=== PATIENT | female | born 1995 | race Caucasian/White ===

== ENCOUNTER 2021-02-20 17:09 | Emergency (ER) | payer OTHER ==
[2021-02-20 17:15] VITALS: BP 108/63
[2021-02-20] MEDS ORDERED: TETANUS/DIPHTHERIA/PERTUSSIS 0.5 ML SYRINGE IM ONE (17:23)
[2021-02-20] MEDS ORDERED: BACITRACIN ZINC OINT 1 PACKET TOP STA (17:23)
--- NOTE | 2021-02-20 17:25 | ED Physician Documentation ---
History of Present Illness - Stated complaint Stated Complaint: LEFT LEG INJURY - Chief complaint Chief Complaint: Ext Problem - Additonal information Additional information: 25-year-old female presents with emergency department for evaluation of superficial scratches on the right lower leg sustained this afternoon when she was helping a friend clean up her backyard. She is unsure of her last tetanus which is the predominant reason for visiting the ER.No pertinent past medical problems or history Review of Systems Constitutional: denies: Fever, Chills Eyes: reports: Reviewed and negative Nose: reports: Reviewed and negative Throat: reports: Reviewed and negative Cardiac: reports: Reviewed and negative Respiratory: reports: Reviewed and negative GI: reports: Reviewed and negative Skin: reports: Abrasion (s) PD PAST MEDICAL HISTORY - Allergies Allergies/Adverse Reactions: Allergies Allergy/AdvReac Type Severity Reaction Status Date / Time No Known Drug Allergies Allergy Verified 02/20/21 17:12 PD ED PE EXPANDED - Extremities Extremities: Right leg (2 superficial scratches on the right lower anterior leg each measuring approximately 6 cm.) Results - Vitals Vitals: Vital Signs - 24 hr 02/20/21 17:12 Temperature 36.5 C Heart Rate 62 Respiratory 16 Rate Blood Pressure 108/63 O2 Saturation 99 Oxygen O2 Source Room air PD MEDICAL DECISION MAKING - ED course Complexity details: considered differential, d/w patient ED course: 25-year-old female presents emergency department with 2 superficial scratches to her right lower anterior leg sustained when cutting them on a jose miguel nail while working in the backyard. Unknown last tetanus. Tetanus updated today. These are superficial in nature and likely to heal by primary intention. Wounds were thoroughly cleansed with chlorhexidine and Betadine. Bacitracin applied routine wound care otherwise discussed. Departure - Departure Disposition: 01 Home, Self Care Clinical Impression: Scratch of right lower leg Comments: The scratches on your right lower leg are rather superficial and I would expect them to heal routinely. Apply Neosporin or bacitracin to them once or twice a day should be sufficient. If at any point you have concerns of infection such as increased pain, surrounding redness or milky drainage then please return immediately to the ER. Your tetanus was updated today and should be good for the next 7 to 10 years.
== END 2021-02-20 18:11 | disposition home or self-care (01) ==
LOC: ED 17:09
DX: S80.811A Abrasion, right lower leg, initial encounter (principal); W45.0XXA Nail entering through skin, initial encounter; Y93.H2 Activity, gardening and landscaping; Y92.007 Garden or yard of unspecified non-institutional (private) residence as the place of occurrence of the external cause; Z23 Encounter for immunization
CPT/HCPCS: 90471; 90715; 99281; 99283; A9270